=== PATIENT | female | born 1935 | race Caucasian/White ===

== ENCOUNTER 2021-08-26 18:08 | Emergency (ER) | payer OTHER ==
--- OUTSIDE RECORDS SUMMARY | 2021-08-26 18:10 | XMS REPORT | Continuity of Care Document ---
:1935 Author Organization [facility] t Address [address] [place] [address] Care Team Providers Name Role Phone Ez-Heron_A_AH Attending Clinician Unavailable Ez-Heron_Marcy_AH Admitting Clinician Unavailable Payers Payer Name Policy Type Policy Number Effective Date Expiration Date S hever [facility] [place] - [id number] 2019 [employer] 00:00:00 (MEDICARE REPLACEMENT/ADVANT AGE - HMO) Problems This patient has no known problems. Allergies, Adverse Reactions, Alerts This patient has no known allergies or adverse reactions. Medications Ordered Filled Start Stop Current Ordering Indication Dosage Frequency Signature Comments Components Source Medication Medication Date Date Medication? Clinician (SIG) Name Name Levothyroxi Levothyroxi Yes Quan TAKE [address] [facility] ne Sodium ne Sodium Cornelius TABLET BY [facility] DAY l ON EMPTY Outpati STOMACH IN ent THE Clinics MORNING Amlodipine Amlodipine Yes Quan 0.[address] [facility] Besylate Besylate [facility] Glucosamine Glucosamine Yes Quan not [facility] Norvasc Norvasc Yes Quan 1/[address] [facility] Vitamin C Vitamin C Yes Quan not [facility] Vitamin D Vitamin D Yes Quan not [facility] Arimidex Arimidex Yes Quan [address] [facility] Calcium Calcium Yes Quan not [facility] Procedures This patient has no known procedures. Encounters Start End Encounter Admission Attending Care Care Encounter Source Date/Time Date/Time Type Type Clinicians Facility Department ID 2021-08-[address] [facility] [id number] [facility]:06:30 [facility] [id number] [facility] 2021-06-01 2021-06-01 Out[facility] [id number] [facility] 2021-02-03 2021-02-03 Out[facility] [id number] [facility] 2020-11-05 2020-11-05 [facility] [id number] 2020-11-05 2020-11-05 Out[facility] [id number] [facility] 2020-09-01 2020-09-01 [facility] [id number] [facility] 2020-07-21 2020-07-21 [facility] [id number] [facility] 2020-04-18 2020-04-18 [facility] [id number] [facility] 09:00:00 09:00:00 t SSN Funding [facility] Clin[facility] 2020-02-11 2020-02-11 [facility] [id number] [facility] 08:28:00 08:28:00 t SSN Funding [facility] 2020-02-01 2020-02-01 [facility] [id number] [facility] 09[facility]15:00 09:15:00 t SSN Funding [facility] 2019-11-02 2019-11-02 Outpatient Delfina Man [id number] [facility] 08:00:00 08:00:00 t SSN Funding [facility] ent Clinics Results This patient has no known results.
[2021-08-26] MEDS ORDERED: ACETAMINOPHEN 325 MG TABLET ONE (19:10)
[2021-08-26] MEDS ORDERED: TRAMADOL HCL 50 MG TAB ONE (19:11)
--- NOTE | 2021-08-26 19:54 | RAD REPORT ---
EXAM DESCRIPTION: US - Extremity Venous Uni Ltd - 08/26/2021 7:40 pm CLINICAL HISTORY: pain, swelling COMPARISON: None. TECHNIQUE: Real-time sonographic evaluation of the left lower extremity deep venous system was perfo rmed. FINDINGS: Normal compressibility, flow augmentation, phasic flow and spontaneous flow are identified in the left lower extremity common femoral, superficial femoral, popliteal and posterior tibial vein s. No intraluminal filling defects seen. IMPRESSION: No DVT in the left lower extremity.
--- NOTE | 2021-08-26 19:57 | RAD REPORT ---
EXAM DESCRIPTION: RAD - Knee Left 3 View - 08/26/2021 7:47 pm CLINICAL HISTORY: knee pain COMPARISON: No comparisons FINDINGS: No fracture, dislocation or periosteal reaction.No joint effusion seen. No joint space adam rowing. Minimal degenerative spurring seen. Spurs are present along the tibial spine. No soft tissue abnormality. IMPRESSION: Mild knee joint degenerative change with no acute bone or joint finding. Clinical concerns for internal derangement or occult bony injury could be further assessed with MR im aging.
--- NOTE | 2021-08-26 21:08 | EDPHYS ---
Physician Documentation [facility] Name: Lo Lopez Age: 86 yrs Sex: Female : 1935 Arrival Date: 08/26/2021 Time: 18:10 Bed 10 Private MD: Quan Cornelius ED Physician Arvind Price HPI: 08/26 19:01 This 86 yrs old Female presents to ER via Wheelchair with complaints of Knee Pain, jmm Trouble Walking. 19:01 The patient presents with pain, that is acute. Onset: The symptoms/episode jmm began/occurred gradually, 2 week(s) ago. Modifying factors: The symptoms are alleviated by nothing. the symptoms are aggravated by movement, weight bearing, bending knee. Associated signs and symptoms: Pertinent negatives fever. This is an 86-year-old female with a history of hypertension that presents emerge department with complaints of left anterior medial pain beginning approximately 2 weeks ago. Patient states she works in her garden daily. Otherwise denies any known injury. Denies fever or chills.. Historical: - Home Meds: 18:25 lumpectomy left breast [Active]; levothyroxine 25 mcg tab 1 tab once daily [Active]; jh5 enalapril maleate 5 mg Oral tab 1 tab once daily [Active]; - PMHx: 18:25 Cancer; Hypertension; Hypothyroidism; jh5 - Immunization history:: Adult Immunizations up to date. - Social history:: Smoking status: Patient denies any tobacco usage or history of. ROS: 19:01 Constitutional: Negative for fever, chills, and weight loss, Cardiovascular: Negative jmm for chest pain, palpitations, and edema, Respiratory: Negative for shortness of breath, cough, wheezing, and pleuritic chest pain. 19:01 MS/extremity: Positive for pain. 19:01 All other systems are negative. Exam: 19:01 Constitutional: This is a well developed, well nourished patient who is awake, alert, jmm and in no acute distress. Head/Face: atraumatic. Eyes: EOMI, no conjunctival erythema appreciated ENT: Moist Mucus Membranes Neck: Trachea midline, Supple Chest/axilla: Normal chest wall appearance and motion. Cardiovascular: Regular rate and rhythm. No edema appreciated Respiratory: Normal respirations, no respiratory distress appreciated Abdomen/GI: Non distended, soft Back: Normal ROM Skin: General appearance color normal 19:01 Musculoskeletal/extremity: ROM: intact in all extremities, Left anterior medial knee pain on palpation, compartments are soft, full dorsalis pulse appreciated, mild pain on flexion, neurovascular intact. 19:01 Skin: Appearance: Color: normal in color. 19:01 Neuro: Orientation: is normal, Mentation: is normal, Memory: is normal. 19:01 Psych: Behavior/mood is pleasant, cooperative. Vital Signs: 18:23 BP 146 / 88; Pulse 66; Resp 16; Temp 97.2; Pulse Ox 98% ; Weight 89.36 kg; Height 5 ft. jh5 6 in. (167.64 cm); 21:35 BP 139 / 87; Pulse 71; Resp 16; Temp 97.9; Pulse Ox 97% ; ds4 18:23 Body Mass Index 31.80 (89.36 kg, 167.64 cm) jh5 MDM: 19:01 Patient medically screened. [facility] 21:04 Data reviewed: vital signs, nurses notes. Counseling: I had a detailed discussion with [place] the patient and/or guardian regarding: the historical points, exam findings, and any diagnostic results supporting the discharge/admit diagnosis, radiology results, the need for outpatient follow up, to return to the emergency department if symptoms worsen or persist or if there are any questions or concerns that arise at home. 08/26 19:02 Order name: Knee Left 3 View XRAY; Complete Time: 20:01 [facility] 08/26 19:02 Order name: US Extremity Venous Unilateral Ltd; Complete Time: 20:01 [facility] 08/26 20:01 Order name: Knee Immobilizer; Complete Time: 21:34 [facility] Administered Medications: 19:19 Drug: traMADol 50 mg Route: PO; iw 21:53 Follow up: Response: No adverse reaction bb 19:19 Drug: Tylenol 650 mg Route: PO; iw 21:53 Follow up: Response: No adverse reaction bb Disposition Summary: 08/26/21 21:07 Discharge Ordered Location: Home [facility] Condition: Stable [facility] Diagnosis - Other internal derangements of left knee [facility] Followup: ashely - With: Gabriele Lopez MD - When: 2 - 3 days - Reason: Recheck today's complaints, Continuance of care, Re-evaluation by your physician Discharge Instructions: - Discharge Summary Sheet jmm - Acute Knee Pain, Adult [facility] Forms: - Medication Reconciliation Form [facility] - Thank You Letter jm - Antibiotic Education [facility] - Prescription Opioid Use [facility] Prescriptions: - orphenadrine citrate 100 mg Oral Tablet Sustained Release - take 1 tablet by ORAL route 2 times per day As needed; 20 tablet; Refills: 0, m Product Selection Permitted Addendum: 08/29/2021 07:38 Co-signature as Attending Physician, Arvind Price MD I agree with the assessment and r n plan of care. Attestation: The patient's history, exam findings, diagnostics, and a summary of any interventions or procedures was reviewed in detail with Franck DEAL. Signatures: Dispatcher [employer] Franck Canada PA PA jmm Williams, Irene, RN Arvind Betancourt MD MD rn Rees, Jessica, RN RN jh5 Kim Martinez RN
--- NOTE | 2021-08-26 21:08 | ER ---
Nurse's Notes [facility] Name: Lo Lopez Age: 86 yrs Sex: Female : 1935 Arrival Date: 08/26/2021 Time: 18:10 Bed 10 Private MD: Quan Cornelius Diagnosis: Other internal derangements of left knee Presentation: 08/26 18:23 Chief complaint: Patient states: left knee pain and swelling; ice and heat aren't 5 helping. Coronavirus screen: Vaccine status: Patient reports receiving the 2nd dose of the covid vaccine. Client denies travel out of the [place] in the last 14 days. Ebola Screen: Patient negative for fever greater than or equal to 101.5 degrees Fahrenheit, and additional compatible Ebola Virus Disease symptoms Patient denies exposure to infectious person. Patient denies travel to an Ebola-affected area in the 21 days before illness onset. No symptoms or risks identified at this time. No acute neurological deficit is noted. Pre-hospital glucose is not applicable to this patient. Initial Sepsis Screen: Does the patient meet any 2 criteria? No. Patient's initial sepsis screen is negative. Does the patient have a suspected source of infection? No. Patient's initial sepsis screen is negative. Risk Assessment: Do you want to hurt yourself or someone else? Patient reports no desire to harm self or others. Onset of symptoms was August 2021. 18:23 Method Of Arrival: Wheelchair [facility] 18:23 Acuity: CHANDRAKANT 4 [facility] Triage Assessment: 18:25 The onset of the patients symptoms was August 19, 2021 at 10:00. General: Appears in [facility] no apparent distress. well groomed, Behavior is calm, cooperative, appropriate for age. Pain: Complains of pain in medial aspect of left knee and left knee. Neuro: No deficits noted. Level of Consciousness is awake, alert, obeys commands, Oriented to person, place, time, situation, Appropriate for age Speech is normal. Historical: - Home Meds: 18:25 lumpectomy left breast [Active]; levothyroxine 25 mcg tab 1 tab once daily [Active]; 5 enalapril maleate 5 mg Oral tab 1 tab once daily [Active]; - PMHx: 18:25 Cancer; Hypertension; Hypothyroidism; jh5 - Immunization history:: Adult Immunizations up to date. - Social history:: Smoking status: Patient denies any tobacco usage or history of. Assessment: 18:31 The patient has not been NPO before screening. The patient is alert, and able to follow [facility] commands. The patient does not exhibit slurred or garbled speech. The patient is not exhibiting difficulty speaking. The patient does not exhibit difficulty understanding words. The patient is able to swallow own secretions with no drooling or need for suction. Patient tolerated one teaspoon of water. No drooling, immediate coughing, gurgling, or clearing of the throat was noted. The patient tolerated 90mL of water. No drooling, immediate coughing, gurgling, or clearing of the throat was noted. The patient passed the bedside swallow screening. Oral medications may be given as ordered. Contact Physician for further diet orders. Provider notified of bedside swallow screening results: Franck DEAL. 21:49 Reassessment: pt seen by this RN at discharge, pt is A\T\O x 4, resp unlabored, left knee bb immobilizer in place. pt states she is unable to bear weight pt instructed on need to follow-up with orthopedics for further evaluation. Pt verbalized understanding of and agrees to plan of care pt assisted to exit via wheelchair with network operations center technician accompanied by family. Vital Signs: 18:23 BP 146 / 88; Pulse 66; Resp 16; Temp 97.2; Pulse Ox 98% ; Weight 89.36 kg; Height 5 ft. jh5 6 in. (167.64 cm); 21:35 BP 139 / 87; Pulse 71; Resp 16; Temp 97.9; Pulse Ox 97% ; ds4 18:23 Body Mass Index 31.80 (89.36 kg, 167.64 cm) 5 ED Course: 18:10 Patient arrived in ED. as 18:10 Quan Cornelius DO is Private Physician. as 18:21 Franck Lundy PA [facility]. [facility] 18:21 Arvind Price MD is Attending Physician. [facility] 18:22 So Jefferson, HENNA is Primary Nurse. 5 18:25 Triage completed. 5 18:27 Arm band placed on right wrist. 5 19:40 US Extremity Venous Unilateral Ltd In Process Unspecified. EDMS 19:46 Knee Left 3 View XRAY In Process Unspecified. EDMS 21:07 Gabriele Lopez MD is Referral Physician. [place] 21:34 Knee immobilizer applied on left knee. ds4 21:54 Patient has correct armband on for positive identification. bb 21:54 No provider procedures requiring assistance completed. Patient did not have IV access bb during this emergency room visit. Administered Medications: 19:19 Drug: traMADol 50 mg Route: PO; iw 21:53 Follow up: Response: No adverse reaction bb 19:19 Drug: Tylenol 650 mg Route: PO; iw 21:53 Follow up: Response: No adverse reaction bb Outcome: 21:07 Discharge ordered by MD. [place]lando 21:54 Discharged to home via wheelchair, with family. bb 21:54 Condition: stable 21:54 Discharge instructions given to patient, family, Instructed on discharge instructions, follow up and referral plans. medication usage, Demonstrated understanding of instructions, follow-up care, medications, Prescriptions given X 1. 21:55 Patient left the ED. bb Signatures: Dispatcher [employer] EDMS Franck Lundy PA PA jmm Martinez, Amelia as Ballard, Brenda, RN RN bb Elvi Boyle, RN RN iw Juan Francisco Ha ds4 So Jefferson, RN RN jh5
[2021-08-26 22:53] VITALS: BP 139/87; TEMP 97.9; O2SAT 97
== END 2021-08-26 21:55 | disposition home or self-care (01) ==
LOC: ER 18:08
DX: M23.8X2 Other internal derangements of left knee (principal); I10 Essential (primary) hypertension; E03.9 Hypothyroidism, unspecified
CPT/HCPCS: 93971; 99284